=== PATIENT | male | born 1960 | race African-American/Black ===

== ENCOUNTER 2023-10-04 08:57 | Inpatient (IN) | payer MEDICAID ==
[~2023-10-04] VITALS: Ht 177.8 cm; Wt 72.8 kg
[2023-10-04 11:08] LABS: BASOPHILS % (AUTO) 0.6 % (0-1); EOSINOPHILS % (AUTO) 0.6 % (0-6); HEMATOCRIT 44.9 % (42.0-52.0); LYMPHOCYTES # (AUTO) 1.7 X10'3 (1.1-4.8); LYMPHOCYTES % (AUTO) 26.2 % (21-51); MEAN CORPUSCULAR HEMOGLOBIN 31.6 PG (27.0-31.0); MEAN CORPUSCULAR HGB CONC 33.4 g/dL (33.0-36.5); MEAN CORPUSCULAR VOLUME 94.7 FL (78-98); MONOCYTES # (AUTO) 0.4 X10'3 (0-0.9); MONOCYTES % (AUTO) 6.2 % (2-12); NEUTROPHILS # (AUTO) 4.4 X10'3 (1.8-7.7); NEUTROPHILS % (AUTO) 66.4 % (42-75); PLATELET COUNT 175 X10'3 (140-440); RED BLOOD COUNT 4.74 X10'6 (4.70-6.10); RED CELL DISTRIBUTION WIDTH 13.2 % (11.5-14.5); WHITE BLOOD COUNT 6.7 X10'3 (4.5-11.0)
[2023-10-04 11:19] LABS: ALBUMIN 3.8 G/DL (3.4-5.0); ANION GAP 9 (8-16); BLOOD UREA NITROGEN 20 MG/DL (7-18); BUN/CREATININE RATIO 15.4 (10.0-20.0); CALCIUM 9.3 MG/DL (8.5-10.1); CHLORIDE 103 MMOL/L (99-107); ETHANOL < 10 MG/DL (<10); GLUCOSE 100 MG/DL (70-104); POTASSIUM 4.1 MMOL/L (3.5-5.1); SODIUM 142 MMOL/L (135-145); TOTAL CARBON DIOXIDE 29.9 MMOL/L (24-32); eCRCL 62 ML/MIN; eGFR 68 ML/MIN
[2023-10-04 11:23] LABS: ACETAMINOPHEN < 2.0 UG/ML (10-30)
[2023-10-04 12:21] LABS: URINE AMPHETAMINE SCREEN NEGATIVE (Neg); URINE BARBITUATE SCREEN NEGATIVE (Neg); URINE BENZODIAZEPINES SCREEN NEGATIVE (Neg); URINE CANNABINOID SCREEN POSITIVE (Neg); URINE COCAINE SCREEN NEGATIVE (Neg); URINE METHADONE SCREEN NEGATIVE (Neg); URINE OPIATE SCREEN NEGATIVE (Neg); URINE PHENCYCLIDINE SCREEN NEGATIVE (Neg)
[2023-10-04 12:27] LABS: BILIRUBIN,URINE NEGATIVE (Neg); CLARITY,URINE CLEAR (Clear); COLOR,URINE YELLOW (Yellow); GLUCOSE, URINE NEGATIVE (Neg); KETONES,URINE NEGATIVE (Neg); LEUKOCYTE ESTERASE ,URINE NEGATIVE (Neg); NITRITES, URINE NEGATIVE (Neg); OCCULT BLOOD,URINE NEGATIVE (Neg); PROTEIN,URINE NEGATIVE (Neg)
[2023-10-04 12:33] LABS: UA COLLECTION TYPE CLN CATCH MIDSTREAM
[2023-10-04] MEDS: ziprasidone IM 20mg inj **IM only IM ONE (12:35)
[2023-10-04 13:28] LABS: ALANINE AMINOTRANSFERASE 34 U/L (12-78); ALBUMIN/GLOBULIN RATIO 0.9 (1.1-1.5); ALKALINE PHOSPHATASE 81 IU/L (46-116); ASPARTATE AMINO TRANSFERASE 82 U/L (10-37); BILIRUBIN,DIRECT 0.2 MG/DL (0-0.3); BILIRUBIN,TOTAL 1.1 MG/DL (0.1-1.0); THYROID STIMULATING HORMONE 0.66 ulU/ml (0.34-4.50); TOTAL PROTEIN 7.9 G/DL (6.4-8.2)
[2023-10-04] MEDS ORDERED: DARU1TAB3 PO (18:20)
[2023-10-04] MEDS ORDERED: EZET10TA6 PO (18:20)
[2023-10-05] MEDS: ezetimibe 10mg tablet PO SCH (08:20)
[2023-10-05] MEDS: [UNRECOGNIZED DRUG - OTHER] PO SCH (08:20)
[2023-10-05 11:34] VITALS: BP 135/89; PULSE 72; RESP 20; TEMP 98.3; O2SAT 97
[2023-10-05] MEDS ORDERED: mag hydrox/Alum hydrox/simeth 30ml oral suspension PO PRN (11:40)
[2023-10-05] MEDS ORDERED: magnesium hydroxide 30ml (MOM) UD suspension PO PRN (11:40)
[2023-10-05] MEDS ORDERED: loperamide 2mg capsule PO PRN (11:40)
[2023-10-05] MEDS ORDERED: acetaminophen 325mg tablet PO PRN ×2 (11:40)
[2023-10-05] MEDS ORDERED: NICOTINE POLACRILEX 2 MG LOZENGE BC PRN (11:40)
[2023-10-05] MEDS: LORazepam 1 MG tablet PO ONE (13:40)
[2023-10-05] MEDS ORDERED: traZODone 50mg tablet PO PRN (13:40)
[2023-10-05 14:59] VITALS: RESP 20; O2SAT 97
[2023-10-05] MEDS ORDERED: BECL10.6 PO (15:28)
[2023-10-05] MEDS ORDERED: EZET10TA48 PO (15:28)
[2023-10-05] MEDS ORDERED: ALB0.5UD IH (16:19)
[2023-10-05 17:28] VITALS: PULSE 69; RESP 16; O2SAT 98
[2023-10-05 19:58] VITALS: PULSE 67; RESP 16; O2SAT 98
[2023-10-05] MEDS: budesonide 0.5mg/2ml UD nebule IH SCH (19:59)
[2023-10-05] MEDS ORDERED: budesonide 0.5mg/2ml UD nebule IH SCH (20:00)
[2023-10-05] MEDS: risperiDONE 2mg tablet PO SCH (20:16)
[2023-10-06 07:30] VITALS: BP 133/84; PULSE 65; RESP 20; TEMP 98.5; O2SAT 96
[2023-10-06] MEDS: nicotine 21mg patch - 24 hr TD SCH (07:48)
[2023-10-06 07:49] VITALS: PULSE 79; RESP 18; O2SAT 90
[2023-10-06] MEDS: divalproex sod 250mg ER (24-hour) tablet PO SCH (11:30)
[2023-10-06] MEDS ORDERED: OLANZapine 2.5MG tablet PO SCH ×2 (11:30→20:00)
[2023-10-06] MEDS: olanzapine 10mg tablet PO SCH (11:42)
[2023-10-06 19:00] VITALS: RESP 24; O2SAT 97
[2023-10-06 20:00] VITALS: BP 127/92; PULSE 100; RESP 24; TEMP 97.3; O2SAT 97
[2023-10-06 20:29] LABS: ALANINE AMINOTRANSFERASE 49 U/L (12-78); ALBUMIN 3.1 G/DL (3.4-5.0); ALBUMIN/GLOBULIN RATIO 0.9 (1.1-1.5); ALKALINE PHOSPHATASE 64 IU/L (46-116); ANION GAP 4 (8-16); ASPARTATE AMINO TRANSFERASE 75 U/L (10-37); BILIRUBIN,TOTAL 0.3 MG/DL (0.1-1.0); BLOOD UREA NITROGEN 17 MG/DL (7-18); BUN/CREATININE RATIO 17.5 (10.0-20.0); CALCIUM 8.6 MG/DL (8.5-10.1); CHLORIDE 105 MMOL/L (99-107); CREATININE 0.97 MG/DL (0.60-1.10); GLUCOSE 103 MG/DL (70-104); SODIUM 139 MMOL/L (135-145); TOTAL PROTEIN 6.6 G/DL (6.4-8.2); eCRCL 80 ML/MIN; eGFR > 90 ML/MIN
[2023-10-06 20:31] VITALS: PULSE 64; RESP 18; O2SAT 98
[2023-10-07 07:30] VITALS: BP 119/71; PULSE 14; RESP 14; RESP 16; TEMP 97.9; O2SAT 93; O2SAT 95
[2023-10-07] MEDS: cholecalciferol (vitamin D3) 1,000 unit (25mcg) tablet PO SCH (07:44)
[2023-10-07] MEDS: ascorbic acid 500mg tablet PO SCH (07:45)
[2023-10-07] MEDS: OMEGA-3/DHA/EPA/FISH OIL 1 EACH CAPSULE.DR PO SCH (07:48)
[2023-10-07 08:09] LABS: CHOL/HDL RATIO 3.2 (0.00-4.99); CHOLESTEROL 170 MG/DL (0-200); HDL CHOLESTEROL 53 MG/DL (35-60); LDL CHOLESTEROL 99 MG/DL (50-100); TRIGLYCERIDES 68 MG/DL (20-135)
[2023-10-07] MEDS ORDERED: divalproex sod 250mg ER (24-hour) tablet PO SCH (08:30)
[2023-10-07 10:53] LABS: HEMOGLOBIN A1C 5.6 % (4.5-6.2)
[2023-10-07 19:00] VITALS: RESP 16; O2SAT 98
[2023-10-07 20:00] VITALS: BP 125/81; PULSE 61; RESP 16; TEMP 97; O2SAT 98
[2023-10-08 07:13] VITALS: RESP 16
[2023-10-08 08:00] VITALS: BP 142/91; PULSE 60; RESP 14; TEMP 97.9; O2SAT 96
[2023-10-08 08:11] VITALS: PULSE 71; RESP 17; O2SAT 97
[2023-10-08 19:00] VITALS: RESP 18; O2SAT 98
[2023-10-08 19:23] VITALS: BP 115/84; PULSE 65; RESP 16; TEMP 98.5; O2SAT 100
[2023-10-08 20:36] VITALS: PULSE 75; RESP 18; O2SAT 95
[2023-10-09 07:00] VITALS: BP 139/85; PULSE 64; RESP 14; TEMP 98.2; O2SAT 95
[2023-10-09 18:53] VITALS: RESP 18; O2SAT 98
[2023-10-09 19:00] VITALS: BP 153/85; PULSE 64; RESP 18; TEMP 98.2; O2SAT 98
[2023-10-09 20:00] VITALS: BP 153/85; PULSE 64; RESP 18; TEMP 98.2; O2SAT 98
[2023-10-10 07:00] VITALS: RESP 16; O2SAT 98
[2023-10-10 07:48] VITALS: PULSE 67; RESP 16; O2SAT 96
[2023-10-10 08:00] VITALS: BP 128/73; PULSE 64; RESP 16; TEMP 98; O2SAT 98
[2023-10-10] MEDS: LORazepam 2 mg/ml vial ONE (10:44)
[2023-10-10] MEDS: haloperidol lactate 5mg/ml inj ONE (10:45)
[2023-10-10] MEDS: diphenhydrAMINE 50 mg/ml inj ONE (10:45)
[2023-10-10] MEDS ORDERED: OLANZapine 2.5MG tablet PO ONE (11:03)
[2023-10-10] MEDS: olanzapine 10mg tablet PO ONE (11:10)
[2023-10-10 19:18] VITALS: RESP 18; O2SAT 97
[2023-10-10 19:23] VITALS: BP 134/72; PULSE 64; RESP 18; TEMP 97.7; O2SAT 97
[2023-10-10 20:32] VITALS: PULSE 63; RESP 16; O2SAT 96
[2023-10-11 07:30] VITALS: BP 124/83; PULSE 64; RESP 16; TEMP 97.7; O2SAT 96
[2023-10-11 08:30] VITALS: PULSE 68; RESP 16; O2SAT 98
[2023-10-11] MEDS: albuterol 2.5 MG/3 ML nebule NEB PRN (08:44)
[2023-10-11 08:46] VITALS: PULSE 72; RESP 18
[2023-10-11] MEDS: lactose-reduced food (Ensure Enlive) - 237ml bottle PO SCH (18:00)
[2023-10-11 19:22] VITALS: BP 141/79; PULSE 62; RESP 16; TEMP 97.9; O2SAT 96
[2023-10-12 07:28] VITALS: PULSE 60; RESP 16; O2SAT 96
[2023-10-12 07:30] VITALS: BP 127/83; PULSE 57; RESP 16; TEMP 98.6; O2SAT 95
[2023-10-12 19:00] VITALS: RESP 18; O2SAT 96
[2023-10-12 20:00] VITALS: BP 131/83; PULSE 61; RESP 18; TEMP 97.8; O2SAT 98
[2023-10-12 20:11] VITALS: PULSE 62; RESP 16; O2SAT 97
[2023-10-13 07:30] VITALS: BP 149/80; PULSE 62; RESP 12; TEMP 98.8; O2SAT 96
[2023-10-13 08:11] VITALS: PULSE 65; RESP 16; O2SAT 92; O2SAT 95
== END 2023-10-13 12:12 | disposition home or self-care (01) | DRG 750 ==
LOC: ER 08:59 → ED HOLD 10-05 10:57 → ADULT MH 10-05 11:34
PROVIDERS: ADMIT Student in an Organized Health Care Education/Training Program; ATTEND Student in an Organized Health Care Education/Training Program
PROC: GZHZZZZ Group Psychotherapy (ICD-10-PCS; principal; 2023-10-08)
PROC: GZ51ZZZ Individual Psychotherapy, Behavioral (ICD-10-PCS; 2023-10-08)
DX: F20.0 Paranoid schizophrenia (principal); E78.5 Hyperlipidemia, unspecified; J44.9 Chronic obstructive pulmonary disease, unspecified; Z20.822 Contact with and (suspected) exposure to COVID-19
CPT/HCPCS: 36415; 71045; 80048; 80053; 80061; 80076; 80305; 80320; 80329; 81003; 83036; 84443; 85025; 87081; 87811; 94640; 94760; 96372; 99285; J1200; J1630; J2060; J3486